=== PATIENT | female | born 2000 | race Caucasian/White ===

== ENCOUNTER → 2020-11-18 17:40 | Observation (INO) | END | disposition home or self-care (01) | LOC: 1NENULAB | PROVIDERS: ADMIT Registered Nurse; ATTEND Registered Nurse ==

== ENCOUNTER 2021-01-15 21:51 | Inpatient (IN) ==
[2021-01-15] MEDS ORDERED: Naloxone 0.4 MG/ML INJ IVP PRN (22:21)
[2021-01-15] MEDS ORDERED: Ondansetron 4 MG/2 ML VIAL IVP PRN (22:21)
[2021-01-15] MEDS ORDERED: *HR* Nalbuphine 10 MG/ML AMPUL IV PRN (22:21)
[2021-01-15] MEDS ORDERED: Metoclopramide 10 MG/2 ML VIAL IVP PRN (22:21)
[2021-01-15] MEDS ORDERED: Famotidine 20 MG/2 ML VIAL IVP PRN (22:21)
[2021-01-15] MEDS ORDERED: Ringers Solution, Lactated 1,000 ML IVC SCH (22:30)
[2021-01-15 22:43] LABS: Amphetamine Screen,Urine Negative ng/mL (Cutoff=1000); Barbiturate Screen,Urine Negative ng/mL (Cutoff=200); Benzodiazepines Screen,Urine Negative ng/mL (Cutoff=200); Cannabinoid Screen,Urine Negative ng/mL (Cutoff = 50); Cocaine Screen,Urine Negative ng/mL (Cutoff= 300); Opiate Screen,Urine Negative ng/mL (Cutoff=300); Phencyclidine Screen,Urine Negative ng/mL (Cutoff=25)
[2021-01-15 22:44] LABS: Basophils % 0.3 %; Eosinophils % 0.6 %; Hematocrit 34.7 % (35.3-44.9); Hemoglobin 10.9 g/dL (11.5-15.4); Immature Granulocytes % 0.3 % (0-4); Lymphocytes # 1.3 K/mcL (0.6-4.6); Mean Corpuscular HGB Conc 31.4 g/dL (31.6-35.5); Mean Corpuscular Hemoglobin 26.1 pg (28.0-33.3); Mean Platelet Volume 12.4 fL (9.4-12.4); Monocytes # 0.8 K/mcL (0.0-1.3); Monocytes % 10.6 %; Neutrophils # 4.9 K/mcL (1.6-8.9); Platelet Count 202 K/mcL (140-400); Red Blood Count 4.18 M/mcL (3.82-4.97); Red Cell Distribution Width 15.4 % (11.5-14.5); Segmented Neutrophils % 69.2 %; White Blood Count 7.1 K/mcL (4.3-11.1)
[2021-01-15] MEDS: miSOPROStoL 25 MCG TABLET PO PRN (22:47)
[2021-01-15 23:46] LABS: Influenza A PCR Negative (Negative); Influenza B PCR Negative (Negative); Resp. Syncytial Virus PCR Negative (Negative)
[2021-01-15 23:50] LABS: SARS-CoV-2 by PCR (In House) Negative (Negative)
[2021-01-16] MEDS ORDERED: EPHEDrine 50 MG/ML VIAL IVP PRN (01:47)
[2021-01-16] MEDS: miSOPROStoL 25 MCG TABLET PO PRN (02:47)
[2021-01-16] MEDS ORDERED: Oxytocin 20 units/ LR 1000 mL 20 UNIT/1,000 ML BAG IVC SCH (08:45)
[2021-01-16] MEDS ORDERED: Ropivacaine/PF 0.2% 20 ML VIAL EP ONE (09:31)
[2021-01-16] MEDS ORDERED: *HR* FentaNYL (PF) 100 MCG/2 ML VIAL EP ONE (09:31)
[2021-01-16] MEDS ORDERED: Fluconazole 150 MG TABLET PO ONE (10:28)
[2021-01-16] MEDS ORDERED: *HR* FentaNYL (PF) 100 MCG/2 ML VIAL ONE ×2 (11:56→23:01)
[2021-01-16] MEDS ORDERED: Ropivacaine/PF 0.2% 20 ML VIAL ONE (11:56)
[2021-01-16] MEDS: Epidural Premix (fent/bupiv) 110 ML EP SCH ×2 (12:17→19:17)
[2021-01-16] MEDS ORDERED: *HR* Ropivacaine/PF 0.5% 20 ML VIAL ONE (23:01)
[2021-01-17] MEDS ORDERED: Ondansetron ODT 4 MG TAB.RAPDIS SL PRN (00:43)
[2021-01-17] MEDS ORDERED: Oxytocin 20 units/ LR 1000 mL 20 UNIT/1,000 ML BAG IVC ONE (00:43)
[2021-01-17] MEDS ORDERED: Measles/Mumps/Rubella Vacc 0.5 ML VIAL SQ PRN (00:43)
[2021-01-17] MEDS ORDERED: Rho Immune Globulin 1,500 UNIT SYRINGE IM PRN (00:43)
[2021-01-17] MEDS ORDERED: Oxytocin 20 units/ LR 1000 mL 20 UNIT/1,000 ML BAG IVC SCH ×2 (00:43→01:30)
[2021-01-17] MEDS ORDERED: Lanolin 7 G OINT...G. TP PRN (00:43)
[2021-01-17] MEDS ORDERED: Benzocaine/Menthol 56 GM AEROSOL SPRAY TP PRN (00:43)
[2021-01-17] MEDS: Epidural Premix (fent/bupiv) 110 ML EP SCH (00:43)
[2021-01-17] MEDS ORDERED: Ondansetron 4 MG/2 ML VIAL ONE (01:21)
[2021-01-17] MEDS ORDERED: Naloxone 0.4 MG/ML INJ IVP PRN (01:22)
[2021-01-17] MEDS ORDERED: Ondansetron 4 MG/2 ML VIAL IVP PRN (01:22)
[2021-01-17] MEDS ORDERED: Famotidine 20 MG/2 ML VIAL IVP PRN (01:22)
[2021-01-17] MEDS ORDERED: Metoclopramide 10 MG/2 ML VIAL IVP PRN (01:22)
[2021-01-17] MEDS ORDERED: Azithromycin 500 MG in 0.9 % Sodium Chloride 250 ML IVPB PRN (01:22)
[2021-01-17] MEDS ORDERED: Lidocaine 1% 20 ML MDV ID PRN (01:22)
[2021-01-17] MEDS ORDERED: Ringers Solution, Lactated 1,000 ML IVC SCH (01:30)
[2021-01-17] MEDS: Ibuprofen 600 MG TABLET PO SCH ×2 (09:27→15:36)
[2021-01-17] MEDS: Prenatal Vit/FA 1 EACH TABLET PO SCH (09:27)
[2021-01-17] MEDS: Acetaminophen 325 MG TABLET PO SCH (15:36)
[2021-01-17 20:37] VITALS: TEMP 97.7
[2021-01-18] MEDS: Ibuprofen 600 MG TABLET PO SCH ×3 (03:56→15:20)
[2021-01-18 04:58] VITALS: BP 130/83; PULSE 88; O2SAT 95
[2021-01-18] MEDS: Prenatal Vit/FA 1 EACH TABLET PO SCH (08:14)
[2021-01-18] MEDS: Acetaminophen 325 MG TABLET PO SCH ×2 (08:14→14:30)
== END 2021-01-18 18:20 | disposition home or self-care (01) | DRG 807 ==
LOC: 1NENULAB 21:51 → UNDODISIN 01-17 04:14 → 1NENUOBS 01-17 08:44
PROVIDERS: ADMIT Student in an Organized Health Care Education/Training Program; ATTEND Student in an Organized Health Care Education/Training Program